=== PATIENT | male | born 1960 | race Caucasian/White ===

== ENCOUNTER 2021-07-28 10:02 | Outpatient (CLI) | payer BC, SELFPAY ==
[2021-07-28 11:12] LABS: SARS-CoV-2 RNA PCR Negative (Negative)
== END 2021-07-28 10:03 | disposition home or self-care (01) ==
LOC: CHSLAB 10:04
PROVIDERS: PCP Internal Medicine; Visit Provider Internal Medicine
DX: J06.9 Acute upper respiratory infection, unspecified (principal); Z20.822 Contact with and (suspected) exposure to COVID-19
CPT/HCPCS: C9803; U0003; U0005

== ENCOUNTER 2021-09-21 00:20 | Day surgery (SDC) | payer BC, SELFPAY ==
[2021-09-08 13:41] VITALS: BMI 30.9
[2021-09-21 06:33] VITALS: BP 99/69; PULSE 57; RESP 18; TEMP 35.9; O2SAT 100
--- NOTE | 2021-09-21 06:38 | WPDANESEPPF ---
Anes - Initial Pre Proc Eval Procedure: Operation Date: 09/21/21 07:30 Proposed Procedures p Screening Colonoscopy - Roddy Sue DO Date/Time: 09/21/21 06:38 Surgeon: Roddy Sue DO Pre Op Diagnosis: neoplasm screening Patient Data Age: 61 Gender: M Height: 1.75 m Weight: 95 kg Last Vital Signs Temp 35.9 C L 09/21/21 06:33 Pulse 57 L 09/21/21 06:33 Resp 18 09/21/21 06:33 BP 99/69 L 09/21/21 06:33 Pulse Ox 100 09/21/21 06:33 Allergies Allergy/AdvReac Type Severity Reaction Status Date / Time No Known Allergies Allergy Verified 09/21/21 06:32 Home Medications Medication Instructions Recorded Confirmed Type aspirin 81 mg PO DAILY 09/08/21 09/21/21 History multivit with min-folic acid 1 tablet PO DAILY 09/08/21 09/08/21 History [Adult One Daily Multivitamin] zinc 1 tablet PO DAILY 09/08/21 09/08/21 History Patient hx anesthesia problems: none Family hx anesthesia problems: none Results Review: All pre-operative results and documents have been reviewed as part of the pre-operative evaluation. [facility] Past Medical History Medical History (Updated 09/21/21 @ 06:39 by Ronak Garcia DO) Atrial fibrillation VIDAL (obstructive sleep apnea) oral appliance Social History Social History Smoking status: Never smoker Living arrangements: with family Anes - Eval Final PreProcedure Day of Procedure 09/21/21 06:38 Patient weight: obese Heart: regular rate and rhythm Lungs: clear to auscultation and normal air movement Airway: Mallampati scale class II Neurological: alert and oriented Last oral intake: >/= 8 hours ASA classification: III Emergent: no Anesthetic plan: proceed Anesthesia type and monitoring: general GIVS and standard monitoring Results Review: All pre-operative results and documents have been reviewed as part of the pre-operative evaluation. Informed Consent: The patient's anesthetic plan and its attendant risks and benefits were discussed with the patient/family/POA. Questions were solicited and answers provided to the satisfaction of the patient/family/POA.
[2021-09-21] MEDS: LACTATED RINGERS 1,000 ML 150 ML IV CONT (06:42)
--- NOTE | 2021-09-21 07:42 | PM.IMHP ---
H&P: HPI History of Present Illness Date/Time: 09/21/21 07:42 Chief Complaint: Screening for colorectal cancer Narrative: this is a 61-year-old man presents for colonoscopy. His last colonoscopy was 10 years ago. He denies any hematochezia or melena. He has distant relatives that had history of colon cancer but no first-degree relatives. Review of Systems Review of Systems: All systems reviewed & are unremarkable except as noted in HPI and below Constitutional: Constitutional: Denies chills, Denies fever(s), Denies headache(s) and Denies weight loss Eyes: Eyes: Denies change in vision ENT: Denies dizziness, Denies headache(s), Denies neck mass and Denies throat swelling Cardiovascular: Cardiovascular: Denies chest pain, Denies lightheadedness and Denies dyspnea Respiratory: Respiratory: Denies cough, Denies dyspnea and Denies wheezing Gastrointestinal: Gastrointestinal: Denies abdominal pain, Denies change in bowel habits, Denies nausea and Denies vomiting Genitourinary: Genitourinary: Denies hematuria and Denies dysuria Musculoskeletal: Musculoskeletal: Reports as per HPI Integumentary/Breasts: Skin/Breast: Reports as per HPI Neurologic: Denies dizziness and Denies headache(s) Allergic/Immunologic: Allergic/Immunologic: Denies throat swelling and Denies wheezing PMFSH Past Medical History Medical History (Updated 09/21/21 @ 07:43 by Roddy Sue DO) Atrial fibrillation VIDAL (obstructive sleep apnea) oral appliance Social History Social History Smoking status: Never smoker Living arrangements: with family Meds Home Medications and Allergies Home Medications Medication Instructions Recorded Confirmed Type aspirin 81 mg PO DAILY 09/08/21 09/21/21 History multivit with min-folic acid 1 tablet PO DAILY 09/08/21 09/08/21 History [Adult One Daily Multivitamin] zinc 1 tablet PO DAILY 09/08/21 09/08/21 History Allergies Allergy/AdvReac Type Severity Reaction Status Date / Time No Known Allergies Allergy Verified 09/21/21 06:32 Vital Signs Vital Signs - 24 hr 09/21/21 06:33 Temperature 35.9 C L Pulse Rate 57 L Respiratory Rate 18 Blood Pressure 99/69 L Pulse Oximetry 100 Exam Const: General: no acute distress and alert Orientation/consciousness: patient oriented x3 HENMT: Head: normocephalic and atraumatic Ears: hearing grossly normal bilaterally General nose exam: Normal nares present Mouth: Yes Normal oral and palatal mucosa present Eyes: Periorbital: periorbital findings normal Sclera: sclerae normal EOM: EOMs intact bilaterally Neck: Neck: normal visual inspection, no lymphadenopathy and trachea midline Chest: Chest palpation & inspection: normal inspection of the chest Resp: Effort & Inspection: normal respiratory effort Auscultation: clear to auscultation bilaterally Cardio: Jugular venous distension: no JVD Rate: regular rate Rhythm: regular rhythm Heart sounds: S1 normal heart sound present and S2 normal heart sound present Peripheral pulses: Peripheral pulses 2+ throughout GI: Inspection: normal to inspection GI Palp: Yes Soft to palpation, No Tenderness to palpation present (GI), No Guarding due to palpation present (GI) and No Rebound tenderness present Percussion: Yes normal to percussion Auscultation: normal bowel sounds : General: Yes no CVA tenderness Back/Spine/Pelvis: Back: no CVA tenderness Neuro: General: patient oriented x3, no focal motor deficits and CN's II-XI intact bilaterally Cognition (Neuro): normal cognition Speech: normal speech Motor exam (neuro): 5/5 motor strength present throughout Extrem: General: capillary refill normal and no clubbing, cyanosis or edema Assessment and Plan Assessment and plan (1) Screening for colorectal cancer: Code(s): Z12.11 - Encounter for screening for malignant neoplasm of colon; Z12.12 - Encounter for screening for malignant neoplasm of rectum Status: Acute
[2021-09-21 08:06] VITALS: BP 80/48; PULSE 51; RESP 16; O2SAT 98
[2021-09-21 08:16] VITALS: BP 111/62; PULSE 56; RESP 18; O2SAT 100
[2021-09-21 08:26] VITALS: BP 113/75; PULSE 54; RESP 18; O2SAT 100
== END 2021-09-21 08:42 | disposition home or self-care (01) ==
PROVIDERS: PCP Internal Medicine; Visit Provider Surgery
PROC: 0DJD8ZZ Inspection of Lower Intestinal Tract, Via Natural or Artificial Opening Endoscopic (ICD-10-PCS; CPT 45378; principal; 2021-09-21 07:30)
DX: Z12.11 Encounter for screening for malignant neoplasm of colon (principal); K63.5 Polyp of colon; K57.30 Diverticulosis of large intestine without perforation or abscess without bleeding; I48.91 Unspecified atrial fibrillation; G47.33 Obstructive sleep apnea (adult) (pediatric); Z79.82 Long term (current) use of aspirin; E66.9 Obesity, unspecified; Z68.30 Body mass index [BMI] 30.0-30.9, adult
CPT/HCPCS: 45385; 88305; J2704; J7120

== ENCOUNTER 2021-10-23 11:01 | Outpatient (CLI) | payer BC, SELFPAY ==
--- NOTE | ~2021-10-23 | US_ITS ---
EXAMINATION: US venous doppler LE RT EXAM DATE: 10/23/2021 11:52 INDICATION: Right calf swelling, pain for 3 days . TECHNIQUE: Multiple grayscale, color flow and Doppler images of the right lower extremity deep venous system were obtained and reviewed. There is no prior study for comparison. FINDINGS: The right common femoral, femoral and profunda veins demonstrate normal color flow, respira tory variation, augmentation and compressibility. Compressibility, color flow confirmed within the r ight popliteal, posterior tibial, peroneal, and greater saphenous veins. Right calf medial heterogeneous hypoechoic to anechoic cystic region which appears between the soleus and gastrocnemius muscles measuring about 1 x 4 x 2 cm, could be hematoma or seroma. If there are an y history of injury? IMPRESSION: 1. No right lower extremity deep venous thrombosis. 2. Anechoic region within or between calf musculature, most likely hematoma/seroma but consider foll ow-up in 1-3 months if this does not resolve clinically. Reviewed, dictated and finalized at location [employer] IMPRESSION: 1. No right lower extremity deep venous thrombosis. 2. Anechoic region within or between calf musculature, most likely hematoma/se narendra but consider follow-up in 1-3 months if this does not resolve clinically.
== END 2021-10-23 11:02 | disposition home or self-care (01) ==
LOC: CHSIMG 11:04
PROVIDERS: PCP Internal Medicine; Visit Provider Internal Medicine
DX: M79.89 Other specified soft tissue disorders (principal); M79.604 Pain in right leg
CPT/HCPCS: 93971